=== PATIENT | female | born 1955 | race Caucasian/White ===

== ENCOUNTER 2020-10-30 08:28 | Day surgery (SDC) | payer MEDICARE, BC ==
[~2020-10-30] VITALS: Ht 162.6 cm; Wt 64.5 kg
[2020-10-30] VITALS (12 sets, daily range): BP systolic 120–137; BP diastolic 52–93
[2020-10-30] MEDS ORDERED: CYCL-1 PO (09:06)
[2020-10-30] MEDS ORDERED: FLUT16SP20 BOTHNARES (09:06)
[2020-10-30] MEDS ORDERED: RAME8TAB24 PO (09:06)
[2020-10-30] MEDS ORDERED: FLUO40CA PO (09:06)
[2020-10-30] MEDS ORDERED: FEXO-62 PO (09:06)
[2020-10-30] MEDS ORDERED: AMLO5TAB16 PO (09:06)
[2020-10-30] MEDS ORDERED: ATOR10TA70 PO (09:06)
[2020-10-30] MEDS ORDERED: CALC-1215 PO (09:12)
[2020-10-30] MEDS ORDERED: ASCO1TAB39 PO (09:12)
[2020-10-30] MEDS ORDERED: HYDR-3972 PO (09:12)
[2020-10-30] MEDS ORDERED: PREDNISONE (09:12)
[2020-10-30] MEDS ORDERED: ASPI-1265 PO (09:12)
[2020-10-30] MEDS ORDERED: MULT-1085 PO (09:12)
[2020-10-30] MEDS ORDERED: DICLOFENAC GEL (09:12)
[2020-10-30] MEDS ORDERED: methylPREDNISolone sod succ 125mg/2ml vial IV ONE (09:40)
[2020-10-30] MEDS ORDERED: diphenhydrAMINE 25mg capsule PO ONE (09:40)
[2020-10-30] MEDS ORDERED: LORazepam 0.5 MG tablet PO PRN ×2 (09:40→10:40)
[2020-10-30] MEDS ORDERED: normal saline 1000ml 1,000 ML IV SCH ×2 (09:40→11:30)
[2020-10-30] MEDS ORDERED: iohexol 350MG/ML 100ml bottle IV ONE (10:09)
[2020-10-30] MEDS ORDERED: fentaNYL/PF 50MCG/1 ML 2ML syringe ONE (10:09)
[2020-10-30] MEDS ORDERED: iohexol 350 MG/ML 50ML vial IV ONE (10:09)
[2020-10-30] MEDS ORDERED: LIDOcaine 1% (10mg/ml)w/preservative injection 20ml MDV ONE (10:09)
[2020-10-30] MEDS ORDERED: midazolam 1 mg/ML 2ml injection ONE ×2 (10:09→10:39)
[2020-10-30] MEDS ORDERED: diphenhydrAMINE 25mg capsule PO PRN (10:40)
[2020-10-30] MEDS ORDERED: nitroGLYCERIN 0.4mg SUBLingual tab SL PRN ×2 (10:40→11:35)
[2020-10-30] MEDS ORDERED: normal saline 1,000 ML IV SCH (10:40)
[2020-10-30] MEDS ORDERED: metoprolol tartrate 1mg/ml inj IV ONE (11:02)
[2020-10-30] MEDS ORDERED: ondansetron/PF 4mg/2ml inj IV PRN (11:30)
[2020-10-30] MEDS ORDERED: HYDROcodone/acetaminophen 5mg/325mg tablet PO PRN (11:35)
[2020-10-30] MEDS ORDERED: OXAZEpam 15mg capsule PO PRN (11:35)
[2020-10-30] MEDS ORDERED: proCHLORperazine 10 MG/2 ml inj IV PRN (11:35)
[2020-10-30] MEDS: HYDROcodone/acetaminophen 10/325mg tab PO PRN ×2 (12:10→16:13)
== END 2020-10-30 17:55 | disposition home or self-care (01) ==
LOC: SSTAY O 08:28
PROVIDERS: ATTEND Internal Medicine Cardiovascular Disease
DX: R94.39 Abnormal result of other cardiovascular function study (principal); R07.89 Other chest pain; E78.5 Hyperlipidemia, unspecified; J44.9 Chronic obstructive pulmonary disease, unspecified; M06.9 Rheumatoid arthritis, unspecified; I10 Essential (primary) hypertension; K21.9 Gastro-esophageal reflux disease without esophagitis; M47.899 Other spondylosis, site unspecified; G89.4 Chronic pain syndrome; I08.1 Rheumatic disorders of both mitral and tricuspid valves; Z98.890 Other specified postprocedural states; Z88.2 Allergy status to sulfonamides; Z88.8 Allergy status to other drugs, medicaments and biological substances; Z87.891 Personal history of nicotine dependence
CPT/HCPCS: 93005; 93458; 99152; C1760; C1769; J1644; J2001; J2250; J2930; J3010; J7030; Q0163; Q9967; A4620; A6258; J3490